=== PATIENT | female | born 1995 | race Caucasian/White ===

== ENCOUNTER 2020-07-31 04:56 | Day surgery (SDC) | payer OTHER ==
[2020-07-30 17:50] VITALS: BMI 27.6
[2020-07-31] MEDS ORDERED: LIDOCAINE HCL 1%, 10 MG/ML (20ML VIAL) ONE (12:06)
[2020-07-31] MEDS ORDERED: ceFAZolin SODIUM 1 GM VIAL IVPB ONE (12:15)
[2020-07-31] MEDS ORDERED: LIDOCAINE HCL 1%, 10 MG/ML (20ML VIAL) NR ONE ×2 (12:17)
[2020-07-31] MEDS ORDERED: ONDANSETRON 4 MG/2 ML VIAL IVPUSH PRN (13:17)
[2020-07-31] MEDS ORDERED: oxyCODONE HCL 5 MG TABLET PO PRN (13:17)
[2020-07-31] MEDS ORDERED: LACTATED RINGERS SOLUTION 1,000 ML IV SCH (13:30)
[2020-07-31 15:05] VITALS: TEMP 97.7
[2020-07-31] MEDS ORDERED: oxyCODONE HCL 5 MG TABLET ONE (15:54)
[2020-07-31 17:01] VITALS: BP 119/74; PULSE 63
== END 2020-07-31 16:45 | disposition home or self-care (01) ==
LOC: JASU-SURG 04:56
PROVIDERS: ATTEND Surgery
PROC: 0HBV0ZX Excision of Bilateral Breast, Open Approach, Diagnostic (ICD-10-PCS; principal; 2020-07-31 11:00)
DX: D24.1 Benign neoplasm of right breast (principal); N60.32 Fibrosclerosis of left breast; N60.22 Fibroadenosis of left breast; N64.89 Other specified disorders of breast
CPT/HCPCS: 19281; 76098-TC-FY; 81025; 88307-TC; 94760